=== PATIENT | male | born 1980 | race Caucasian/White ===

== ENCOUNTER → 2023-10-10 08:19 | Outpatient (CLI) | payer OTHER, SELFPAY ==
[2023-10-10 09:27] LABS: Add Manual Diff / Slide Review NO; Basophils Absolute Auto 100 /uL (0-100); Basophils Percent Auto 0.8 % (0-2); Eosinophils Absolute Auto 600 /uL (0-450); Eosinophils Percent Auto 6.5 % (2-4); Hematocrit 46.2 % (41-53); Hemoglobin 15.7 g/dL (13.5-17.5); Lymphocytes Absolute Auto 2300 /uL (1100-4500); Mean Corpuscular HGB Conc 34.1 % (30-36); Mean Corpuscular Hemoglobin 28.5 PG (26-34); Mean Corpuscular Volume 83.6 fL (80-100); Monocytes Absolute Auto 700 /uL (0-900); Monocytes Percent Auto 8.3 % (3-14); Neutrophils Absolute Auto 5100 /uL (1500-7000); Neutrophils Percent Auto 58.4 % (50-75); Platelet Count 274 X10^3/uL (150-400); Red Blood Cell Count 5.52 X10^6/uL (4.5-5.9); Red Cell Distribution Width 13.7 % (11.6-14.8); White Blood Cell Count 8.7 X10^3/uL (4.5-11.0)
[2023-10-10 10:06] LABS: Alanine Aminotransferase 57 IU/L (<50); Albumin 4.4 g/dL (3.5-5.0); Albumin Globulin Ratio 1.5 (1.0-2.8); Alkaline Phosphatase 54 U/L (38-126); Aspartate Aminotransferase 34 IU/L (17-59); BUN Creatinine Ratio 14.1 (6-22); Bilirubin Total 0.6 mg/dL (0.2-1.3); Blood Urea Nitrogen 14 mg/dL (9-20); Calcium 9.6 mg/dL (8.4-10.2); Carbon Dioxide 29 mmol/L (22-32); Chloride 103 mmol/L (98-107); Cholesterol 243 mg/dL (140-199); Estimated Glomerular Filt Rate > 60 mL/min (>60); Globulin 2.9 g/dL (1.7-4.1); Glucose 97 mg/dL (70-100); HDL Cholesterol 38 mg/dL (40-60); HEMOLYSIS < 15 (0-50); LDL Cholesterol Calculated 161 mg/dL (<100); Potassium 4.5 mmol/L (3.4-5.1); Sodium 140 mmol/L (137-145); Total Protein 7.3 g/dL (6.3-8.2); Triglycerides 218 mg/dL (35-150)
== END ==
PROVIDERS: PCP Family Medicine; Referring Provider Family Medicine; Visit Provider Family Medicine
DX: Z00.00 Encounter for general adult medical examination without abnormal findings (principal); J45.909 Unspecified asthma, uncomplicated
CPT/HCPCS: 36415; 80053; 80061; 85025

== ENCOUNTER 2023-11-17 13:32 | Day surgery (SDC) | payer OTHER, SELFPAY ==
--- NOTE | 2023-11-17 | PATH_ITS ---
[facility] Accession Number: [id number] No. of containers..01 Tissue . 01 Material submitted: . anal skin - RISSA-ANAL . 01 Clinical history: . SKIN TAG . 01 Diagnosis: Perianal, Biopsy: Fibroepithelial polyp, inflamed. . Note: Subtle verrucous surface changes are noted, most likely secondary to persistent rubbing. Clinical pathological correlation is advised. [facility] 11/23/2023 1536 Local . 01 Electronically signed: . Nakia Ayala MD, Dermatopathologist NPI- [id number] . 01 Gross description: . RISSA-ANAL: Received in formalin is 1 fragment of guerrero soft tissue measuring 0.8 x 0.6 x 1.2 cm. Tissue is inked. Specimen is sectioned and submitted in its entirety in 1 cassette. /JD 11/18/20232029 Local . 01 Pathologist provided ICD-10: D23.9 . 01 CPT . 110232 Specimen Comment: A courtesy copy of this report has been sent to [phone] Performed at: 01 [facility] [address] [place] [address], [place], [place] [id number] MD Darshan Lu MD Phone: [phone]
[2023-11-17] MEDS: LACTATED RINGERS 1,000 ML 42 ML IV (13:49)
[2023-11-17] MEDS: ACETAMINOPHEN 325 MG TABLET 975 MG PO (14:00)
[2023-11-17 14:01] VITALS: BP 118/73; PULSE 65; RESP 16; TEMP 36.6; O2SAT 92; BMI 29.0
--- NOTE | 2023-11-17 15:20 | PM.PREOP ---
Pre-operative Note COVID-19 COVID-19 status: Not tested Interval Note History & Physical reviewed/Exam performed by Physician: Yes Changes to H&P: No ASA Class (for procedural sedation): II
--- NOTE | 2023-11-17 15:59 | SUR.OPER ---
Lithotomy on padded OR bed, head on pillow, arms secured on padded arm boards at <90 degrees abduction. Legs secured in padded yellow fins stirrups.
[2023-11-17] MEDS: BUPIVACAINE LIPOSOME 266 MG/20 ML VIAL INJ (16:08)
--- NOTE | 2023-11-17 16:11 | PM.OP.1 ---
Operative Date/Time/Diagnoses Date of procedure: 11/17/23 Time of procedure: 16:11 Pre-op diagnosis: External hemorrhoid/skin tag Post-op diagnosis: same Procedure & Clinicians Procedure: Excisional biopsy of external hemorrhoids/skin tag Same procedure as scheduled: Yes Surgeon: Oscar Tellez Anesthesia Type: Sedation and Local Operative Notes Procedure in detail: The patient is a 43-year-old man who presented with a rather protuberant external hemorrhoid versus a skin tag in his left perianal skin. He was consented for an excision in the operating. The patient was brought to the operating room and sedation was administered. His legs were placed in lithotomy position. The perineum was prepped and draped in the usual fashion and a time-out was performed. The rather protuberant skin tag was in the left posterior quadrant of the perianal skin. It measured about 1 cm. Straight Exparel was injected into the skin and subcutaneous tissue around the base of the skin tag. After holding some pressure the skin tag was excised at its base using a small ellipse. Some cautery was used for hemostasis. The wound was then closed in layers using a dermal Vicryl stitch followed by a running 4-0 Monocryl closure followed by Dermabond. He was awakened and brought to recovery. EBL: 5 mL Specimen: Left skin tag Post-operative Condition: stable Disposition: PACU
[2023-11-17 16:17] VITALS: BP 103/68; PULSE 60; RESP 13; TEMP 36.8; O2SAT 95
[2023-11-17 16:23] VITALS: BP 105/80; PULSE 58; RESP 14; TEMP 36.8; O2SAT 95
[2023-11-17 16:36] VITALS: BP 108/76; PULSE 59; RESP 12; TEMP 36.4; O2SAT 99
== END 2023-11-17 16:45 | disposition home or self-care (01) ==
PROVIDERS: PCP Family Medicine; Referring Provider Surgery; Visit Provider Surgery
PROC: (CPT 45990; principal; 2023-11-17 15:00)
DX: K64.4 Residual hemorrhoidal skin tags (principal); K62.0 Anal polyp
CPT/HCPCS: 46220; C9290; J1885; J2250; J2405; J2704; J3010

== ENCOUNTER 2024-01-28 09:12 | Day surgery (SDC) | payer OTHER, SELFPAY ==
--- NOTE | 2024-01-28 | PATH_ITS ---
[facility] Accession Number: [id number] No. of containers..01 Tissue . 01 Material submitted: . colon - HEPATIC FLEXURE POLYPS . 01 Diagnosis: HEPATIC FLEXURE, POLYPS: Tubular adenoma in 1 of 2 fragments. Benign lymphoid aggregate, 1 fragment. Additional levels were examined. [facility] 02/05/2024 1354 Local . 01 Electronically signed: . Cora Whitmore MD, Pathologist NPI- [id number] . 01 Gross description: . HEPATIC FLEXURE POLYPS : Received in formalin are 2 fragment(s) of guerrero, soft tissue measuring 0.4 x 0.4 x 0.2 cm to 0.7 x 0.5 x 0.4 cm submitted entirely in 1 cassette(s) /JD 01/29/2024 0121 Local . 01 Pathologist provided ICD-10: D12.3 . 01 CPT . 937688 Specimen Comment: A courtesy copy of this report has been sent to [phone] Performed at: 01 [facility] [address] [place] [id number] MD Darshan Lu MD Phone: [phone]
[2024-01-28 09:36] VITALS: BP 114/74; PULSE 68; RESP 16; TEMP 36.5; O2SAT 96
[2024-01-28] MEDS: LACTATED RINGERS 1,000 ML 42 ML IV (09:40)
--- NOTE | 2024-01-28 09:41 | PM.HP.1 ---
History of Present Illness History of Present Illness Date Patient Seen: 01/28/24 Time Patient Seen: 09:41 Chief complaint: Screening Colonoscopy Narrative: Shane is a 43-year-old man who presents for his first screening colonoscopy. No known family history of colon cancer. [facility] Medical History Hyperlipidemia Anxiety (~2015) Chicken pox (~1982) Amblyopia (~1977) GERD (gastroesophageal reflux disease) (~2013) Preventative health care Change in multiple pigmented skin lesions Seasonal allergic rhinitis Asthma (~1982) Surgical History Anesthesia History of eye surgery Family History Father Cancer Social History household members: spouse and children Smoking Status: Never smoker alcohol intake: current Meds Home Medications and Allergies Home Medications Medication Instructions Recorded Confirmed Type albuterol sulfate 90 mcg/actuation 2 puff inhalation Q4-6H PRN 09/14/23 01/28/24 Rx aerosol inhaler shortness of breath or wheezing #8.5 grams Allergies Allergy/AdvReac Type Severity Reaction Status Date / Time No Known Drug Allergies Allergy Verified 01/28/24 09:30 Exam Vital Signs (past 8 hours): - 01/28/24 09:36 Temperature 97.7 F Pulse Rate 68 Respiratory Rate 16 Blood Pressure 114/74 Pulse Oximetry 96 Oxygen Delivery Method Room Air Oxygen Delivery Method Room Air Const General: No acute distress Resp Effort & Inspection: normal respiratory effort Assessment & Plan Assessment and plan (1) Colon cancer screening: Status: Acute Plan We reviewed the risks and benefits of colonoscopy for colon cancer screening and he would like to proceed.
--- NOTE | 2024-01-28 10:41 | P.OP.COLON_ITS ---
Operative Date/Time/Diagnoses Date of procedure: 01/28/24 Time of procedure: 10:41 Pre-op diagnosis: Colon cancer screening Post-op diagnosis: same Procedure & Clinicians Study performed: Colonoscopy Same procedure as scheduled: Yes Surgeon: Oscar Tellez Procedure Notes Procedure in detail: Surgeon: Oscar Tellez MD Anesthesia: Halle Cowart DO Procedure: The patient was brought to the endoscopy suite, placed in left lateral decubitus position. The patient was connected to monitoring devices. A time-out was performed. Sedation was administered. Once the patient was adequately sedated, a digital rectal exam was performed and was normal. The scope was then inserted and advanced to the cecum where the appendiceal orifice was identified and photographed. The scope was then slowly withdrawn over greater than 6 minutes. The mucosa was thoroughly inspected. The terminal ile um was intubated and no abnormalities were seen. There were 2 polyps near the hepatic flexure, roughly 5 mm each, both removed with cold snare and sent together. The scope was retroflexed in the rectum. No other abnormalities were seen. The scope was straightened and removed. The patient was awakened and brought to recovery. Scope withdrawal time: 12 minutes Sedation time: 20 minutes EBL: 5 mL Findings: 2 5 mm polyps near the hepatic flexure Post-procedure Disposition: PACU
[2024-01-28 10:44] VITALS: BP 97/61; PULSE 61; RESP 10; O2SAT 91
[2024-01-28 10:49] VITALS: BP 90/54; PULSE 60; RESP 10; O2SAT 93
[2024-01-28 10:54] VITALS: BP 104/44; PULSE 52; RESP 12; O2SAT 95
[2024-01-28 10:58] VITALS: BP 106/72; PULSE 56; RESP 12; TEMP 36.6; O2SAT 95
== END 2024-01-28 11:15 | disposition home or self-care (01) ==
PROVIDERS: PCP Family Medicine; Referring Provider Surgery; Visit Provider Surgery
PROC: 0DJD8ZZ Inspection of Lower Intestinal Tract, Via Natural or Artificial Opening Endoscopic (ICD-10-PCS; CPT 45378; principal; 2024-01-28 10:00)
DX: Z12.11 Encounter for screening for malignant neoplasm of colon (principal); D12.3 Benign neoplasm of transverse colon
CPT/HCPCS: 45385; 36415; J2704